=== PATIENT | female | born 1985 | race Two or more races ===

== ENCOUNTER 2019-11-03 10:57 | Outpatient (CLI) | payer OTHER | END 2019-11-03 11:10 | disposition home or self-care (01) | LOC: RX STUDY 10:57 | PROVIDERS: ATTEND Obstetrics & Gynecology Reproductive Endocrinology | DX: N93.8 Other specified abnormal uterine and vaginal bleeding (principal); N91.0 Primary amenorrhea; Q50.6 Other congenital malformations of fallopian tube and broad ligament ==

== ENCOUNTER 2023-01-24 11:32 | Inpatient (IN) | payer OTHER ==
[~2023-01-24] VITALS: Ht 157.5 cm; Wt 3.2 kg
[2023-01-24 12:59] LABS: HEMATOCRIT 36.2 % (36.0-45.00); HEMOGLOBIN 12.1 g/dL (12.0-15.00); MEAN CELL VOLUME 84.8 fL (80.00-100.00); MEAN CORPUSCULAR HEMOGLOBIN 28.5 pg (27.00-32.0); MEAN CORPUSCULAR HGB CONC 33.5 g/dl (32.0-36.0); PLATELET COUNT 291 K/uL (150-450); RED BLOOD COUNT 4.26 M/uL (4.00-6.00); RED CELL DISTRIBUTION WIDTH 13.8 % (11.5-14.5)
[2023-01-24 14:01] LABS: INR < 0.93; PROTHROMBIN TIME 9.6 SECONDS (9.0-11.5)
[2023-01-24 14:05] LABS: PARTIAL THROMBOPLASTIN TIME < 20.0 SECONDS (22.0-34.0)
[2023-01-24 14:10] LABS: ALBUMIN 2.6 gm/dL (3.4-5.0); BILIRUBIN TOTAL 0.21 mg/dL (0.3-1.2); CALCIUM 9.5 mg/dL (8.5-10.1); CREATININE SERUM 0.6 mg/dL (0.55-1.02); GFR 113.11; GLOBULINA 4.1 G/DL (2.4-3.5); POTASSIUM 4.44 mEq/L (3.5-5.1); TOTAL PROTEIN 6.7 gm/dL (6.4-8.2)
[2023-01-31 12:14] LABS: ABG PH 7.342 (7.35-7.45); ABG PO2 28.7 mmHg (80-100); ABG pCO2 43.2 mmHg (35-45); BASE EXCESS -2.8 mmol/l; BICARBONATE 22.9 mmol/l (23-25); Tco2 24.2 mmol/l
[2023-01-31 12:15] LABS: o2 21 %
[2023-01-31 16:37] LABS: HEMATOCRIT 32.9 % (36.0-45.00); HEMOGLOBIN 10.9 g/dL (12.0-15.00); MEAN CELL VOLUME 84.1 fL (80.00-100.00); MEAN CORPUSCULAR HEMOGLOBIN 27.9 pg (27.00-32.0); MEAN CORPUSCULAR HGB CONC 33.1 g/dl (32.0-36.0); PLATELET COUNT 222 K/uL (150-450); RED BLOOD COUNT 3.91 M/uL (4.00-6.00); RED CELL DISTRIBUTION WIDTH 14.2 % (11.5-14.5)
[2023-02-01 07:39] LABS: HEMATOCRIT 29.9 % (36.0-45.00); HEMOGLOBIN 10.2 g/dL (12.0-15.00); MEAN CELL VOLUME 83.4 fL (80.00-100.00); MEAN CORPUSCULAR HEMOGLOBIN 28.6 pg (27.00-32.0); MEAN CORPUSCULAR HGB CONC 34.3 g/dl (32.0-36.0); PLATELET COUNT 211 K/uL (150-450); RED BLOOD COUNT 3.58 M/uL (4.00-6.00); RED CELL DISTRIBUTION WIDTH 13.9 % (11.5-14.5)
== END 2023-02-02 12:42 | disposition home or self-care (01) | DRG 788 ==
LOC: O/R 01-31 06:00 → OB/GYN 01-31 06:00
PROVIDERS: ADMIT Obstetrics & Gynecology Maternal & Fetal Medicine; ATTEND Obstetrics & Gynecology Maternal & Fetal Medicine
PROC: 4A1HXCZ Monitoring of Products of Conception, Cardiac Rate, External Approach (ICD-10-PCS; 2023-01-31)
PROC: 10D00Z1 Extraction of Products of Conception, Low, Open Approach (ICD-10-PCS; principal; 2023-01-31 11:00)
DX: O34.211 Maternal care for low transverse scar from previous cesarean delivery (principal); Z3A.38 38 weeks gestation of pregnancy; Z37.0 Single live birth; Z20.822 Contact with and (suspected) exposure to COVID-19

== ENCOUNTER 2024-07-27 11:15 | Inpatient (IN) | payer OTHER ==
[~2024-07-27] VITALS: Ht 157.5 cm; Wt 56.7 kg
[2024-07-27 09:57] VITALS: BP 111/73
[2024-07-27] MEDS ORDERED: PROMETHAZINE HCL 50 MG/ML AMPUL IM STA (11:44)
[2024-07-27] MEDS ORDERED: RINGERS SOLUTION,LACTATED 1,000 ML IV SCH (11:45)
[2024-07-27] MEDS ORDERED: SYNTHROID50 MCG PO (12:01)
[2024-07-27] MEDS ORDERED: ZOFRAN8 MG PO (12:02)
[2024-07-27] MEDS ORDERED: PEPCID AC20 MG PO (12:02)
[2024-07-27] MEDS ORDERED: BENADRYL25 MG PO (12:03)
[2024-07-27] MEDS ORDERED: DEXILANT30 MG PO (12:03)
[2024-07-27 12:26] LABS: BASO % 0.1 % (0.1-1.2); HEMATOCRIT 41.2 % (34.1-44.9); HEMOGLOBIN 13.9 g/dL (11.2-15.7); LYMPH # 0.82 (1.18-3.74); MEAN CORPUSCULAR HEMOGLOBIN 29.1 pg (25.6-32.2); MONO # 0.45 (0.24-0.82); MONO % 3.9 % (4.7-12.5); NEUT # 10.34 (1.56-6.13); NEUT % 88.7 % (34.0-71.1); PLATELET COUNT 269 K/uL (163-369); RED BLOOD COUNT 4.77 M/uL (3.93-5.22); RED CELL DISTRIBUTION WIDTH 12.6 % (11.6-14.4)
[2024-07-27 12:30] LABS: ALBUMIN 2.7 gm/dL (3.4-5.0); BILIRUBIN TOTAL 0.49 mg/dL (0.3-1.2); CALCIUM 8.4 mg/dL (8.5-10.1); CREATININE SERUM 0.66 mg/dL (0.55-1.02); GFR 100.77; GLOBULINA 4.2 G/DL (2.4-3.5); POTASSIUM 3.69 mEq/L (3.5-5.1); TOTAL PROTEIN 6.9 gm/dL (6.4-8.2)
[2024-07-27 12:34] LABS: INR 0.98; PARTIAL THROMBOPLASTIN TIME 23.6 SECONDS (22.0-34.0); PROTHROMBIN TIME 10.7 SECONDS (9.0-11.5)
[2024-07-27 15:15] VITALS: BP 107/70
[2024-07-27 17:34] VITALS: BP 107/70
[2024-07-27] MEDS ORDERED: FAMOTIDINE/PF 20 MG/2 ML VIAL IV PUSH SCH (17:45)
[2024-07-27] MEDS ORDERED: MAGNESIUM SULFATE IN WATER 100 ML IV ONE (17:45)
[2024-07-27] MEDS ORDERED: MAGNESIUM SULFATE IN WATER 500 ML IV SCH (17:45)
[2024-07-27] MEDS ORDERED: BETAMETHASONE ACETATE,SOD PHOS 30 MG/5 ML ML IM STA (18:10)
[2024-07-27 20:15] VITALS: BP 100/64
[2024-07-27 23:24] VITALS: BP 113/70; O2SAT 100
[2024-07-28] MEDS ORDERED: METOCLOPRAMIDE HCL 5 MG/ML VIAL IV SCH
[2024-07-28 03:13] VITALS: BP 110/70; O2SAT 98
[2024-07-28 06:09] VITALS: BP 99/62; O2SAT 98
[2024-07-28 10:55] VITALS: BP 106/72
[2024-07-28 15:44] VITALS: BP 107/72
[2024-07-28] MEDS ORDERED: BETAMETHASONE ACETATE,SOD PHOS 30 MG/5 ML ML ONE (17:07)
[2024-07-28] MEDS ORDERED: BETAMETHASONE ACETATE,SOD PHOS 30 MG/5 ML ML IM ONE (18:00)
[2024-07-28 19:48] VITALS: BP 100/65
[2024-07-28 23:24] VITALS: BP 85/50
[2024-07-28] MEDS ORDERED: MAGNESIUM SULFATE IN WATER 0.04 GM/ML IV.SOLN IV ONE (23:45)
[2024-07-29 04:00] VITALS: BP 96/62
[2024-07-29 06:24] VITALS: BP 95/69; O2SAT 100
[2024-07-29] MEDS ORDERED: ACETAMINOPHEN 500 MG GEL..CAP PO ONE (08:45)
[2024-07-29 11:16] VITALS: BP 100/66; O2SAT 98
== END 2024-07-29 13:51 | disposition home or self-care (01) | DRG 833 ==
LOC: OBS/DEL 11:15 → LDR 17:43
PROVIDERS: ADMIT Obstetrics & Gynecology Gynecology; ATTEND Obstetrics & Gynecology Gynecology
PROC: 4A1HXCZ Monitoring of Products of Conception, Cardiac Rate, External Approach (ICD-10-PCS; principal; 2024-07-27)
PROC: BY4FZZZ Ultrasonography of Third Trimester, Single Fetus (ICD-10-PCS; 2024-07-28)
PROC: BU4CZZZ Ultrasonography of Uterus and Ovaries (ICD-10-PCS; 2024-07-28)
DX: O60.03 Preterm labor without delivery, third trimester (principal); O36.8130 Decreased fetal movements, third trimester, not applicable or unspecified; O26.843 Uterine size-date discrepancy, third trimester; Z3A.33 33 weeks gestation of pregnancy

== ENCOUNTER 2024-09-05 12:15 | Inpatient (IN) | payer OTHER ==
[~2024-09-05] VITALS: Ht 157.5 cm; Wt 59.0 kg
[~2024-09-05 12:15] MED LIST: BENADRYL25 MG PO; DEXILANT30 MG PO; PEPCID AC20 MG PO; SYNTHROID50 MCG PO; ZOFRAN8 MG PO
[2024-09-05 14:42] LABS: INR < 0.93
[2024-09-05 14:53] LABS: BASO % 0.2 % (0.1-1.2); EOS # 0.02 (0.04-0.54); EOS % 0.2 % (0.7-7.0); LYMPH # 2.21 (1.18-3.74); LYMPH % 22.7 % (19.3-53.1); MEAN PLATELET VOLUME 11.30 fl (9.4-12.4); MONO # 0.51 (0.24-0.82); MONO % 5.2 % (4.7-12.5); NEUT # 6.92 (1.56-6.13); NEUT % 71.2 % (34.0-71.1); RED CELL DISTRIBUTION WIDTH 13.8 % (11.6-14.4)
[2024-09-05 15:49] LABS: ALT/SGPT 16.0 U/L (12-78); AST/SGOT 17.0 U/L (15-37); BILIRUBIN TOTAL 0.26 mg/dL (0.3-1.2); BUN CREA RATIO 13.0 (7.0-25.0); CREATININE SERUM 0.54 mg/dL (0.55-1.02); GFR 127.03; GLOBULINA 4.2 G/DL (2.4-3.5); GLUCOSE FASTING 80.0 mg/dL (65-100); OSMOLALITY SERUM 273.0 MOSM/KG (275-295)
[2024-09-06 22:26] VITALS: BP 109/73
[2024-09-06 22:32] VITALS: BP 109/73
[2024-09-06] MEDS ORDERED: CEFAZOLIN SODIUM 1,000 MG VIAL IV SCH (23:00)
[2024-09-06] MEDS ORDERED: CITRIC ACID/SODIUM CITRATE 30 ML BLIST.PACK PO SCH (23:00)
[2024-09-06] MEDS ORDERED: FAMOTIDINE/PF 20 MG/2 ML VIAL IV ONE (23:00)
[2024-09-06] MEDS ORDERED: RINGERS SOLUTION,LACTATED 1,000 ML IV SCH (23:00)
[2024-09-06 23:20] VITALS: BP 106/72
[2024-09-07] MEDS ORDERED: MORPHINE SULFATE 4 MG/ML VIAL IV PRN (00:30)
[2024-09-07 03:27] VITALS: BP 116/71
[2024-09-07 07:18] VITALS: BP 125/78
[2024-09-07] MEDS ORDERED: RINGERS SOLUTION,LACTATED 1,000 ML IV SCH (09:15)
[2024-09-07] MEDS ORDERED: OXYTOCIN 1,000 ML IV ONE (09:15)
[2024-09-07] MEDS ORDERED: MORPHINE SULFATE 4 MG/ML CARTRIDGE IV PRN (09:15)
[2024-09-07] MEDS ORDERED: KETOROLAC TROMETHAMINE 30 MG VIAL IV SCH (12:00)
[2024-09-07] MEDS ORDERED: ONDANSETRON HCL 2 MG/ML VIAL IV SCH (12:00)
[2024-09-07] MEDS ORDERED: ACETAMINOPHEN 500 MG GEL..CAP PO SCH (12:00)
[2024-09-07] MEDS ORDERED: OXYTOCIN 10 UNITS/ML VIAL IV ONE (12:15)
[2024-09-07] MEDS ORDERED: ERYTHROMYCIN BASE OPHT 1GM EACH TUBE OP ONE (12:15)
[2024-09-07] MEDS ORDERED: MORPHINE SULFATE 4 MG/ML VIAL IV ONE (13:00)
[2024-09-07 14:06] VITALS: BP 104/69
[2024-09-07 16:00] VITALS: BP 96/61
[2024-09-07] MEDS ORDERED: GABAPENTIN 300 MG CAPSULE PO SCH (17:00)
[2024-09-07] MEDS ORDERED: SIMETHICONE 125 MG CAPSULE PO SCH (17:00)
[2024-09-07 20:24] VITALS: BP 98/57
[2024-09-07 20:25] VITALS: BP 98/57
[2024-09-08 00:29] VITALS: BP 90/56
[2024-09-08 06:43] LABS: BASO % 0.2 % (0.1-1.2); EOS # 0.02 (0.04-0.54); EOS % 0.2 % (0.7-7.0); LYMPH # 1.95 (1.18-3.74); LYMPH % 17.4 % (19.3-53.1); MEAN PLATELET VOLUME 10.90 fl (9.4-12.4); MONO # 0.56 (0.24-0.82); MONO % 5.0 % (4.7-12.5); NEUT # 8.63 (1.56-6.13); NEUT % 76.9 % (34.0-71.1); RED CELL DISTRIBUTION WIDTH 14.1 % (11.6-14.4)
[2024-09-08] MEDS ORDERED: KETOROLAC TROMETHAMINE 10 MG TABLET PO SCH (08:00)
[2024-09-08] MEDS ORDERED: OxyCODONE HCL 5 MG TABLET (ROXICODONE) PO PRN (08:00)
[2024-09-08 08:45] VITALS: BP 99/64
[2024-09-08] MEDS ORDERED: DOCUSATE SODIUM 100MG CAP PO SCH (09:00)
[2024-09-08 13:20] VITALS: BP 99/66
[2024-09-08 16:07] VITALS: BP 95/60
[2024-09-08] MEDS ORDERED: OxyCODONE HCL 5 MG TABLET (ROXICODONE) PO SCH (18:00)
[2024-09-09] VITALS: BP 110/70
[2024-09-09 04:00] VITALS: BP 98/63
[2024-09-09 08:00] VITALS: BP 95/66
== END 2024-09-09 11:14 | disposition home or self-care (01) | DRG 785 ==
LOC: OB/GYN 09-06 22:05 → LDR 09-06 22:05 → O/R 09-07 11:16 → OB/GYN 09-07 11:32
PROVIDERS: Obstetrics & Gynecology; ADMIT Obstetrics & Gynecology; ATTEND Obstetrics & Gynecology
PROC: 10D00Z1 Extraction of Products of Conception, Low, Open Approach (ICD-10-PCS; principal; 2024-09-06)
PROC: 0UB70ZZ Excision of Bilateral Fallopian Tubes, Open Approach (ICD-10-PCS; 2024-09-06)
PROC: 4A1HXCZ Monitoring of Products of Conception, Cardiac Rate, External Approach (ICD-10-PCS; 2024-09-06)
DX: O34.211 Maternal care for low transverse scar from previous cesarean delivery (principal); Z30.2 Encounter for sterilization; Z3A.38 38 weeks gestation of pregnancy; Z37.0 Single live birth

== ENCOUNTER → 2024-09-06 | Outpatient (CLI) | payer OTHER ==
[2024-09-06 19:00] VITALS: BP 109/73
[2024-09-06 20:15] VITALS: BP 109/73
== END | disposition still patient (30) ==
LOC: OBS/DEL 20:36
PROVIDERS: ATTEND Obstetrics & Gynecology
DX: O26.893 Other specified pregnancy related conditions, third trimester (principal)